=== PATIENT | male | born 1960 | race Caucasian/White ===

== ENCOUNTER 2020-06-21 17:35 | Emergency (ER) | payer MEDICAID ==
[~2020-06-21] VITALS: Ht 175.3 cm; Wt 93.7 kg
[2020-06-21] MEDS ORDERED: METH4TAB81 PO (19:09)
[2020-06-21 20:23] VITALS: BP 145/87
== END 2020-06-21 20:24 | disposition home or self-care (01) ==
LOC: ER 17:36
DX: M72.2 Plantar fascial fibromatosis (principal); Z88.8 Allergy status to other drugs, medicaments and biological substances; Z79.899 Other long term (current) drug therapy
CPT/HCPCS: 73610; 99284

== ENCOUNTER 2020-07-22 16:25 | Emergency (ER) | payer MEDICAID ==
[~2020-07-22] VITALS: Ht 172.7 cm; Wt 91.3 kg
[~2020-07-22 16:25] MED LIST: METH4TAB81 PO
[2020-07-22 17:53] LABS: COLOR,URINE RED (Yellow)
[2020-07-22 17:58] LABS: CLARITY,URINE BLOODY (Clear); UA COLLECTION TYPE CLN CATCH MIDSTREAM
[2020-07-22 17:59] LABS: MUCUS STRANDS MODERATE /LPF (Neg); RBC,URINE TNTC /HPF (0-2)
[2020-07-22 18:01] LABS: BACTERIA,URINE 1+ /HPF (Neg); SQUAMOUS EPITHELIAL CELL,UR NONE SEEN /LPF (FEW)
[2020-07-22 19:21] LABS: ALANINE AMINOTRANSFERASE 26 U/L (12-78); ALBUMIN 3.6 G/DL (3.4-5.0); ALBUMIN/GLOBULIN RATIO 0.9 (1.1-1.5); ALKALINE PHOSPHATASE 154 IU/L (46-116); ANION GAP 5 (8-16); ASPARTATE AMINO TRANSFERASE 23 U/L (10-37); BILIRUBIN,TOTAL 0.5 MG/DL (0.1-1.0); BLOOD UREA NITROGEN 13 MG/DL (7-18); BUN/CREATININE RATIO 13.4 (5.4-32.0); CALCIUM 10.4 MG/DL (8.5-10.1); CHLORIDE 102 MMOL/L (99-107); CREATININE 0.97 MG/DL (0.60-1.10); GLUCOSE 122 MG/DL (70-104); POTASSIUM 3.8 MMOL/L (3.5-5.1); SODIUM 139 MMOL/L (135-145); TOTAL CARBON DIOXIDE 31.9 MMOL/L (24-32); TOTAL PROTEIN 7.7 G/DL (6.4-8.2); eGFR 79 ML/MIN
[2020-07-22 19:49] LABS: BASOPHILS # (AUTO) 0.1 X10'3 (0-0.2); BASOPHILS % (AUTO) 0.7 % (0-1); EOSINOPHILS # (AUTO) 0.3 X10'3 (0-0.9); EOSINOPHILS % (AUTO) 3.2 % (0-6); HEMATOCRIT 47.9 % (42.0-52.0); HEMOGLOBIN 16.3 g/dl (14.0-17.9); LYMPHOCYTES # (AUTO) 2.5 X10'3 (1.1-4.8); MEAN CORPUSCULAR HEMOGLOBIN 30.3 PG (27.0-31.0); MEAN CORPUSCULAR HGB CONC 33.9 g/dL (33.0-36.5); MEAN CORPUSCULAR VOLUME 89.4 FL (78-98); MEAN PLATELET VOLUME 7.8 FL (7.4-10.4); MONOCYTES # (AUTO) 0.8 X10'3 (0-0.9); MONOCYTES % (AUTO) 9.7 % (2-12); NEUTROPHILS # (AUTO) 4.4 X10'3 (1.8-7.7); NEUTROPHILS % (AUTO) 55.4 % (42-75); PLATELET COUNT 333 X10'3 (140-440); RED BLOOD COUNT 5.35 X10'6 (4.70-6.10); RED CELL DISTRIBUTION WIDTH 12.9 % (11.5-14.5)
[2020-07-22] MEDS ORDERED: CEPH-585 PO (20:07)
[2020-07-22 20:32] VITALS: BP 132/85
== END 2020-07-22 20:34 | disposition home or self-care (01) ==
LOC: ER 16:25
DX: R31.9 Hematuria, unspecified (principal); M25.512 Pain in left shoulder; R10.31 Right lower quadrant pain; R05 Cough; Z88.8 Allergy status to other drugs, medicaments and biological substances; Z79.2 Long term (current) use of antibiotics; Z79.899 Other long term (current) drug therapy
CPT/HCPCS: 36415; 80053; 81001; 85025; 87088; 99283